=== PATIENT | female | born 1980 | race African-American/Black ===

== ENCOUNTER 2017-03-17 08:51 | Emergency (ER) | payer OTHER ==
[2017-03-17] MEDS ORDERED: Ondansetron HCl/PF 4 MG/2 ML Vial ONE (09:17)
[2017-03-17] MEDS ORDERED: Diazepam 5 MG TAB ONE (09:17)
[2017-03-17] MEDS ORDERED: Ketorolac Tromethamine 30 MG/ML VIAL ONE (09:17)
[2017-03-17] MEDS ORDERED: Morphine 4 MG/ML VIAL ONE (09:17)
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
== END 2017-03-17 10:22 | disposition home or self-care (01) ==
LOC: MADERS 08:51
DX: T07.XXXA Unspecified multiple injuries, initial encounter (principal); E28.2 Polycystic ovarian syndrome; M19.90 Unspecified osteoarthritis, unspecified site; V44.5XXA Car driver injured in collision with heavy transport vehicle or bus in traffic accident, initial encounter; W22.11XA Striking against or struck by driver side automobile airbag, initial encounter
CPT/HCPCS: 70450; 72125; 72170; J1885; J2270; J2405